=== PATIENT | female | born 1995 | race Caucasian/White ===

== ENCOUNTER → 2016-04-25 | Outpatient (CLI) | payer OTHER | END | disposition home or self-care (01) | LOC: AMB 09:01 | PROC: 0KB Muscles, Excision (ICD-10-PCS; principal; 2016-04-25) | DX: D36.11 Benign neoplasm of peripheral nerves and autonomic nervous system of face, head, and neck (principal); Z83.3 Family history of diabetes mellitus | CPT/HCPCS: 88305 ==

== ENCOUNTER 2017-05-13 09:11 | Outpatient (CLI) | payer OTHER ==
[~2017-05-13] VITALS: Ht 180.3 cm; Wt 88.4 kg
[~2017-05-13 09:11] MED LIST: ZOFRAN ODT4 MG PO
[2017-05-13 09:23] VITALS: BP 134/84
[2017-05-13 10:19] LABS: BASOPHIL (%) 0.4 % (0-1); BASOPHIL COUNT 0.1 K/uL (0-0.1); EOSINOPHIL COUNT 0.1 K/uL (0-0.3); HEMATOCRIT 33.5 % (36.0-46.0); HEMOGLOBIN 11.1 G/DL (11.9-15.5); IMMATURE GRANULOCYTE (%) 2.6 % (0.0-0.7); LYMPHOCYTE (%) 11.3 % (15-42); LYMPHOCYTE COUNT 1.6 K/uL (1.0-2.8); MCH 29.8 PG (29.0-34.0); MCHC 33.1 G/DL (30.0-36.0); MCV 90.1 FL (83-99); MONOCYTE (%) 7.8 % (3-12); MONOCYTE COUNT 1.1 K/uL (0-0.8); NEUTROPHIL (%) 76.9 % (45-76); NEUTROPHIL COUNT 10.6 K/uL (1.8-6.4); PLATELET COUNT 216 K/uL (156-360); RBC DIS.WIDTH-CV 13.2 % (11.8-14.6); RBC DIS.WIDTH-SD 42.9 % (39-53); RED BLOOD COUNT 3.72 M/uL (3.80-5.20); WHITE BLOOD COUNT 13.8 K/uL (4.1-10.2)
[2017-05-13] MEDS ORDERED: TYLENOL EXTRA500 MG PO (10:26)
[2017-05-13] MEDS ORDERED: AZO CRANBERRY1 EACH PO (10:27)
[2017-05-13 10:45] LABS: APPEARANCE SL.HAZY ((CLEAR)); COLOR ORANGE ((YELLOW)); SPECIFIC GRAVITY 1.029 (1.000-1.030)
[2017-05-13 10:46] LABS: BILIRUBIN LARGE; BLOOD MODERATE; GLUCOSE (STRIP) NEGATIVE; ICTOTEST NEGATIVE
[2017-05-13 10:46] LABS: CHLORIDE 105 MEQ/L (99-109); POTASSIUM 4.2 MEQ/L (3.7-5.4); SODIUM 136 MEQ/L (136-147)
[2017-05-13 10:51] LABS: RED BLOOD CELLS 20-30 /HPF (0-5)
[2017-05-13 10:52] LABS: EPITHELIAL CELLS 1+ /HPF; MUCUS 1+ /LPF
[2017-05-13 10:58] LABS: BACTERIA 2+ /HPF; UCUL ADDED? YES; URIC ACID CRYSTALS 2+ /HPF
[2017-05-13 11:28] LABS: ALBUMIN 3.4 G/DL (3.2-4.8); ALKALINE PHOSPHATASE 75 IU/L (3-129); ALT (GPT) 20 IU/L (3-49); AST (GOT) 20 IU/L (2-34); CREATININE 0.7 MG/DL (0.6-1.3); GFR ESTIMATE (CALCULATED) > 59 mL/min/; GLUCOSE 71 mg/dL (70-99); TOTAL BILIRUBIN 0.3 MG/DL (0.0-1.0); TOTAL PROTEIN 5.9 G/DL (6.4-8.3); UREA NITROGEN (BUN) 8 mg/dL (9-23)
[2017-05-13 11:34] VITALS: BP 135/81
[2017-05-13 15:06] VITALS: BP 133/65
[2017-05-13 19:08] VITALS: BP 121/71
[2017-05-13 22:51] VITALS: BP 124/64
[2017-05-14] VITALS (10 sets, daily range): BP systolic 114–142; BP diastolic 62–82
[2017-05-14 06:57] LABS: BASOPHIL (%) 0.3 % (0-1); EOSINOPHIL (%) 0.7 % (0-5); EOSINOPHIL COUNT 0.1 K/uL (0-0.3); HEMATOCRIT 29.2 % (36.0-46.0); HEMOGLOBIN 9.8 G/DL (11.9-15.5); IMMATURE GRANULOCYTE (%) 1.3 % (0.0-0.7); LYMPHOCYTE (%) 13.8 % (15-42); LYMPHOCYTE COUNT 1.8 K/uL (1.0-2.8); MCH 30.5 PG (29.0-34.0); MCHC 33.6 G/DL (30.0-36.0); MONOCYTE (%) 7.9 % (3-12); NEUTROPHIL COUNT 9.8 K/uL (1.8-6.4); PLATELET COUNT 185 K/uL (156-360); RBC DIS.WIDTH-CV 13.2 % (11.8-14.6); RBC DIS.WIDTH-SD 43.4 % (39-53); RED BLOOD COUNT 3.21 M/uL (3.80-5.20); WHITE BLOOD COUNT 12.8 K/uL (4.1-10.2)
[2017-05-14 07:23] LABS: ALKALINE PHOSPHATASE 68 IU/L (3-129); ALT (GPT) 17 IU/L (3-49); AST (GOT) 17 IU/L (2-34); CHLORIDE 108 MEQ/L (99-109); CREATININE 0.9 MG/DL (0.6-1.3); GFR ESTIMATE (CALCULATED) > 59 mL/min/; GLUCOSE 82 mg/dL (70-99); POTASSIUM 3.8 MEQ/L (3.7-5.4); SODIUM 138 MEQ/L (136-147); TOTAL BILIRUBIN 0.3 MG/DL (0.0-1.0); TOTAL PROTEIN 5.1 G/DL (6.4-8.3); UREA NITROGEN (BUN) 7 mg/dL (9-23)
[2017-05-14 19:19] LABS: BASOPHIL (%) 0.4 % (0-1); BASOPHIL COUNT 0.1 K/uL (0-0.1); EOSINOPHIL (%) 0.5 % (0-5); EOSINOPHIL COUNT 0.1 K/uL (0-0.3); HEMATOCRIT 29.8 % (36.0-46.0); IMMATURE GRANULOCYTE (%) 1.5 % (0.0-0.7); LYMPHOCYTE (%) 9.3 % (15-42); LYMPHOCYTE COUNT 1.2 K/uL (1.0-2.8); MCH 30.3 PG (29.0-34.0); MCHC 33.6 G/DL (30.0-36.0); MCV 90.3 FL (83-99); MONOCYTE (%) 7.2 % (3-12); MONOCYTE COUNT 0.9 K/uL (0-0.8); NEUTROPHIL (%) 81.1 % (45-76); NEUTROPHIL COUNT 10.4 K/uL (1.8-6.4); PLATELET COUNT 205 K/uL (156-360); RBC DIS.WIDTH-CV 13.3 % (11.8-14.6); RBC DIS.WIDTH-SD 43.8 % (39-53); WHITE BLOOD COUNT 12.9 K/uL (4.1-10.2)
[2017-05-14 22:02] LABS: ALBUMIN 3.1 G/DL (3.2-4.8); ALKALINE PHOSPHATASE 66 IU/L (3-129); ALT (GPT) 16 IU/L (3-49); AMYLASE 32 IU/L (1-118); AST (GOT) 17 IU/L (2-34); CHLORIDE 107 MEQ/L (99-109); CREATININE 0.8 MG/DL (0.6-1.3); GFR ESTIMATE (CALCULATED) > 59 mL/min/; GLUCOSE 90 mg/dL (70-99); LIPASE 8 U/L (1.0-51.0); POTASSIUM 3.6 MEQ/L (3.7-5.4); SODIUM 136 MEQ/L (136-147); TOTAL BILIRUBIN 0.4 MG/DL (0.0-1.0); TOTAL PROTEIN 5.7 G/DL (6.4-8.3); UREA NITROGEN (BUN) 6 mg/dL (9-23)
[2017-05-15 03:40] VITALS: BP 128/69
[2017-05-15 07:35] VITALS: BP 124/65
[2017-05-15 11:00] VITALS: BP 112/58
[2017-05-15 14:41] VITALS: BP 112/67
[2017-05-15 19:49] VITALS: BP 119/63
[2017-05-16 03:05] VITALS: BP 115/63
== END 2017-05-16 10:56 | disposition home or self-care (01) ==
LOC: LDRP-OP 09:11 → 2WEST 09:12 → LDRP-OP 08-08 09:57
PROVIDERS: Nurse Practitioner; Obstetrics & Gynecology
DX: O99.89 Other specified diseases and conditions complicating pregnancy, childbirth and the puerperium (principal); N13.30 Unspecified hydronephrosis; O99.013 Anemia complicating pregnancy, third trimester; Z87.440 Personal history of urinary (tract) infections; O99.613 Diseases of the digestive system complicating pregnancy, third trimester; K59.00 Constipation, unspecified; Z3A.32 32 weeks gestation of pregnancy; Z72.0 Tobacco use
CPT/HCPCS: 59025; 74177; 76705; 76770; 76805; 80053; 81003; 82150; 83690; 84120 90; 85025; 85025 91; 87086; C9113; G0378; J0696; J2270; J2405; J7120

== ENCOUNTER 2017-07-13 00:11 | Inpatient (IN) | payer OTHER ==
[2017-07-13] VITALS (31 sets, daily range): BP systolic 96–140; BP diastolic 53–89
[~2017-07-13] VITALS: Ht 180.3 cm; Wt 97.0 kg
[~2017-07-13 00:11] MED LIST changes: +AZO CRANBERRY1 EACH PO; +TYLENOL EXTRA500 MG PO
[2017-07-13 01:05] LABS: BASOPHIL (%) 0.3 % (0-1); EOSINOPHIL (%) 0.9 % (0-5); EOSINOPHIL COUNT 0.1 K/uL (0-0.3); HEMATOCRIT 35.2 % (36.0-46.0); HEMOGLOBIN 12.2 G/DL (11.9-15.5); IMMATURE GRANULOCYTE (%) 1.4 % (0.0-0.7); LYMPHOCYTE (%) 15.3 % (15-42); LYMPHOCYTE COUNT 2.2 K/uL (1.0-2.8); MCH 30.4 PG (29.0-34.0); MCHC 34.7 G/DL (30.0-36.0); MCV 87.8 FL (83-99); NEUTROPHIL (%) 75.1 % (45-76); PLATELET COUNT 216 K/uL (156-360); RBC DIS.WIDTH-CV 12.9 % (11.8-14.6); RBC DIS.WIDTH-SD 41.4 % (39-53); RED BLOOD COUNT 4.01 M/uL (3.80-5.20); WHITE BLOOD COUNT 14.6 K/uL (4.1-10.2)
[2017-07-13 03:29] LABS: AMPHETAMINE NEGATIVE (500 ng/mL); BARBITURATES NEGATIVE (200 ng/mL); BENZODIAZEPINES NEGATIVE (150 ng/mL); BUPRENORPHINE NEGATIVE (10 ng/mL); COCAINE NEGATIVE (150 ng/mL); METHADONE NEGATIVE (200 ng/mL); METHAMPHETAMINE NEGATIVE (500 ng/mL); OPIATES (MORPHINE) NEGATIVE (100 ng/mL); OXYCODONE NEGATIVE (100 ng/mL); PHENCYCLIDINE NEGATIVE (25 ng/mL); PROPOXYPHENE NEGATIVE (300 ng/mL); THC CANNABINOIDS NEGATIVE (50 ng/mL); TRICYCLIC ANTIDEPRESSANTS NEGATIVE (300 ng/mL)
[2017-07-13] MEDS ORDERED: PRENATAL TABLE1 EAC3 PO (05:39)
[2017-07-13] MEDS ORDERED: IBUPROFEN800 MG PO (11:33)
[2017-07-14 07:03] VITALS: BP 124/75
[2017-07-14 15:51] VITALS: BP 139/84
[2017-07-14 22:34] VITALS: BP 130/77
[2017-07-15] VITALS (12 sets, daily range): BP systolic 117–150; BP diastolic 61–87
[2017-07-15 00:12] LABS: APPEARANCE CLOUDY ((CLEAR)); BILIRUBIN NEGATIVE; BLOOD LARGE; COLOR YELLOW ((YELLOW)); GLUCOSE (STRIP) NEGATIVE; KETONES NEGATIVE; LEUKOCYTES LARGE; NITRITE NEGATIVE; PROTEIN (STRIP) 30; UROBILINOGEN 0.2 MG/DL (0.2-1.0)
[2017-07-15 00:50] LABS: RED BLOOD CELLS TNTC /HPF (0-5); WHITE BLOOD CELLS TNTC /HPF (0-5)
[2017-07-15 00:55] LABS: EPITHELIAL CELLS 1+ /HPF
[2017-07-15 00:58] LABS: MUCUS RARE /LPF
[2017-07-15 00:59] LABS: BACTERIA 2+ /HPF
[2017-07-15 01:45] LABS: BASOPHIL (%) 0.3 % (0-1); BASOPHIL COUNT 0.1 K/uL (0-0.1); EOSINOPHIL (%) 1.1 % (0-5); EOSINOPHIL COUNT 0.2 K/uL (0-0.3); HEMATOCRIT 29.4 % (36.0-46.0); HEMOGLOBIN 9.8 G/DL (11.9-15.5); IMMATURE GRANULOCYTE (%) 1.9 % (0.0-0.7); LYMPHOCYTE (%) 11.1 % (15-42); LYMPHOCYTE COUNT 1.8 K/uL (1.0-2.8); MCHC 33.3 G/DL (30.0-36.0); MCV 89.9 FL (83-99); MONOCYTE (%) 5.9 % (3-12); NEUTROPHIL (%) 79.7 % (45-76); NEUTROPHIL COUNT 12.8 K/uL (1.8-6.4); PLATELET COUNT 201 K/uL (156-360); RBC DIS.WIDTH-SD 42.7 % (39-53); RED BLOOD COUNT 3.27 M/uL (3.80-5.20); WHITE BLOOD COUNT 16.1 K/uL (4.1-10.2)
[2017-07-15] MEDS ORDERED: PERCOCET 5/31 TABLET PO (12:23)
== END 2017-07-15 20:08 | disposition home or self-care (01) | DRG 767 ==
LOC: LDRP-OP 00:11 → 2WEST 00:12 → LDRP-OP 10:29 → 2WEST 10:50 → LDRP-OP 08-08 11:23
PROVIDERS: Midwife; Obstetrics & Gynecology
DX: O70.0 First degree perineal laceration during delivery (principal); O73.1 Retained portions of placenta and membranes, without hemorrhage; Z3A.40 40 weeks gestation of pregnancy; Z37.0 Single live birth; Z87.440 Personal history of urinary (tract) infections
CPT/HCPCS: 76857; 81003; 85025; 87086; 88305; C1755; J0595; J0690; J1170; J2250; J2405; J3010; J7120

== ENCOUNTER 2017-07-18 12:12 | Emergency (ER) | payer OTHER ==
[~2017-07-18] VITALS: Ht 175.3 cm; Wt 86.3 kg
[~2017-07-18 12:12] MED LIST changes: +IBUPROFEN800 MG PO; +PERCOCET 5/31 TABLET PO; +PRENATAL TABLE1 EAC3 PO
[2017-07-18 12:49] LABS: HEMATOCRIT 28.5 % (36.0-46.0); HEMOGLOBIN 9.7 G/DL (11.9-15.5); MCH 30.5 PG (29.0-34.0); MCV 89.6 FL (83-99); NRBC (%) 0.2 /100 WBC (0-0); RBC DIS.WIDTH-CV 12.3 % (11.8-14.6); RBC DIS.WIDTH-SD 40.1 % (39-53); RED BLOOD COUNT 3.18 M/uL (3.80-5.20); WHITE BLOOD COUNT 9.9 K/uL (4.1-10.2)
[2017-07-18 12:52] LABS: PLATELET COUNT 294 K/uL (156-360)
[2017-07-18 13:20] LABS: ALBUMIN 3.4 g/dL (3.2-4.8)
[2017-07-18 13:21] LABS: CHLORIDE 110 mEq/L (99-109); POTASSIUM 4.1 mEq/L (3.7-5.4); SODIUM 139 mEq/L (136-147)
[2017-07-18 13:23] LABS: GLUCOSE 95 mg/dL (70-99); TOTAL PROTEIN 6.3 g/dL (6.4-8.3)
[2017-07-18 13:25] LABS: TOTAL BILIRUBIN 0.2 mg/dL (0.0-1.0)
[2017-07-18 13:26] LABS: ALKALINE PHOSPHATASE 129 IU/L (3-129)
[2017-07-18 13:27] LABS: CREATININE 0.6 mg/dL (0.6-1.3); GFR ESTIMATE (CALCULATED) > 59 mL/min/
[2017-07-18 13:28] LABS: AST (GOT) 26 IU/L (2-34); UREA NITROGEN (BUN) 14 mg/dL (9-23)
[2017-07-18 13:30] LABS: ALT (GPT) 36 IU/L (3-49); LIPASE 5 U/L (1.0-51.0)
[2017-07-18 15:25] LABS: APPEARANCE CLEAR ((CLEAR)); BILIRUBIN NEGATIVE; BLOOD MODERATE; COLOR AMBER ((YELLOW)); GLUCOSE (STRIP) NEGATIVE; KETONES 20; LEUKOCYTES MODERATE; NITRITE POSITIVE; PROTEIN (STRIP) NEGATIVE; SPECIFIC GRAVITY 1.044 (1.000-1.030)
[2017-07-18 15:32] LABS: BACTERIA RARE /HPF; EPITHELIAL CELLS RARE /HPF; MUCUS TRACE /LPF; RED BLOOD CELLS 30-40 /HPF (0-5); UCUL ADDED? YES; WHITE BLOOD CELLS 20-30 /HPF (0-5)
[2017-07-18] MEDS ORDERED: CYTOTEC200 MCG PO (16:28)
[2017-07-18] MEDS ORDERED: ZOFRAN ODT4 MG PO (16:28)
[2017-07-18 16:54] VITALS: BP 122/71
== END 2017-07-18 16:54 | disposition home or self-care (01) ==
LOC: EME 12:12
PROVIDERS: Physician Assistant
DX: O86.20 Urinary tract infection following delivery, unspecified (principal); O86.21 Infection of kidney following delivery
CPT/HCPCS: 74177; 76857; 80053; 81003; 83690; 85027; 87077; 87086; 87186; 99281; 99284; J0696; J1885; J2405; J3010; J7030